=== PATIENT | female | born 1985 | race Caucasian/White ===

== ENCOUNTER 2016-11-18 10:05 | Emergency (ER) | payer BC ==
[~2016-11-18] VITALS: Ht 175.3 cm; Wt 84.4 kg
[~2016-11-18 10:05] MED LIST: ENDOCET 5-3251 EACH PO; IBUPROFEN800 MG PO; Motrin PO; PROMETHAZINE HC25 M1 PO; Percocet 5/325,Endoc PO; VENTOLIN HFA18 GM IH
[2016-11-18 10:40] LABS: ADD MIUA? YES; BILIRUBIN NEGATIVE; BLOOD MODERATE; COLOR YELLOW ((YELLOW)); GLUCOSE (STRIP) NEGATIVE; KETONES NEGATIVE; LEUKOCYTES NEGATIVE; NITRITE NEGATIVE; PROTEIN (STRIP) 30; SPECIFIC GRAVITY 1.019 (1.000-1.030); UROBILINOGEN 0.2 MG/DL (0.2-1.0)
[2016-11-18 10:48] LABS: BACTERIA NONE SEEN /HPF; EPITHELIAL CELLS 1+ /HPF; HYALINE CASTS 0-5 /LPF; MUCUS TRACE /LPF; UCUL ADDED? NO; WHITE BLOOD CELLS 0-5 /HPF (0-5)
[2016-11-18 11:12] LABS: HEMATOCRIT 44.5 % (36.0-46.0); MCH 29.7 PG (29.0-34.0); MCHC 34.4 G/DL (30.0-36.0); MCV 86.2 FL (83-99); MEAN PLAT.VOLUME 10.1 uM^3 (9.5-12.4); PLATELET COUNT 209 K/uL (156-360); RBC DIS.WIDTH-CV 12.4 % (11.8-14.6); RBC DIS.WIDTH-SD 39.3 % (39-53); RED BLOOD COUNT 5.16 M/uL (3.80-5.20); WHITE BLOOD COUNT 7.8 K/uL (4.1-10.2)
[2016-11-18 11:26] LABS: CHLORIDE 105 mEq/L (99-109); POTASSIUM 4.1 mEq/L (3.7-5.4); SODIUM 142 mEq/L (136-147)
[2016-11-18 11:28] LABS: GLUCOSE 120 mg/dL (70-99)
[2016-11-18 11:29] LABS: ANION GAP 8 MEQ/L (2-14)
[2016-11-18 11:30] LABS: TOTAL BILIRUBIN 0.8 mg/dL (0.0-1.0)
[2016-11-18 11:35] LABS: ALKALINE PHOSPHATASE 93 IU/L (3-129); GFR ESTIMATE (CALCULATED) > 59 mL/min/; UREA NITROGEN (BUN) 11 mg/dL (9-23)
[2016-11-18 11:42] LABS: QUANTITATIVE HCG < 4.0 MIU/ML
[2016-11-18 11:52] LABS: LIPASE 14 U/L (1.0-51.0)
[2016-11-18 13:24] VITALS: BP 117/81
== END 2016-11-18 13:25 | disposition home or self-care (01) ==
LOC: EME 10:05
DX: K92.2 Gastrointestinal hemorrhage, unspecified (principal); J45.909 Unspecified asthma, uncomplicated
CPT/HCPCS: 80053; 81003; 83690; 84702; 85027; 99281; 99284